=== PATIENT | male | born 1950 | race Caucasian/White ===

== ENCOUNTER 2022-01-08 10:35 | Day surgery (SDC) | payer MEDICARE, MEDICAID, SELFPAY ==
[2022-01-08] VITALS (8 sets, daily range): BP systolic 114–168; BP diastolic 66–80; PULSE 59–68; RESP 16; TEMP 36.2–36.7; O2SAT 96–100; BMI 28.5
[2022-01-08] MEDS: Lactated Ringers 1,000 ML 15 ML IV (11:36)
--- NOTE | 2022-01-08 12:35 | PCM.HP.BLA ---
History and Physical Date of Admission: 01/08/22 HISTORY AND PHYSICAL ? Phoenix Rivera 1950 ? ? REFERRING PHYSICIAN: Jessica Tapia MD ? CHIEF COMPLAINT: New Patient ? HPI: The patient is a 71 year old male with a diagnosis of Vascular catheter fitting or adjustment (primary encounter diagnosis). Phoenix is currently scheduled to undergo chemotherapy and needs vascular access for treatment. The patient denies a prior history of central venous access. ? The patient is right hand dominant. ? The patient is being seen by me today at the request of Dr. Tapia for my opinion and advice regarding Vascular catheter fitting or adjustment (primary encounter diagnosis). ? ? PAST MEDICAL HISTORY PAST MEDICAL HISTORY Diagnosis Date ? CAD (coronary artery disease) 11/03/2021 ? COPD (chronic obstructive pulmonary disease) (HCC) 11/03/2021 ? GERD (gastroesophageal reflux disease) 11/03/2021 ? History of CVA (cerebrovascular accident) 11/03/2021 ? HTN (hypertension) 11/03/2021 ? RY (obstructive sleep apnea) 11/03/2021 ? Type 2 diabetes mellitus (HCC) 11/03/2021 ? ? PAST SURGICAL HISTORY PAST SURGICAL HISTORY Procedure Laterality Date ? APPENDECTOMY ? ? ? CHOLECYSTECTOMY HX ? ? ? PAST SURGICAL HISTORY OF ? ? ? lithotripsy ? PAST SURGICAL HISTORY OF ? ? ? cervical fusion ? PAST SURGICAL HISTORY OF ? ? ? cardiac stents ? PAST SURGICAL HISTORY OF ? ? ? left shoulder surgery x 2 ? PAST SURGICAL HISTORY OF ? ? ? multiple colonoscopies ? PAST SURGICAL HISTORY OF ? ? ? right colectomy ? PAST SURGICAL HISTORY OF ? ? ? left knee surgery x 2 ? PAST SURGICAL HISTORY OF ? ? ? hernia repair x 2 ? PAST SURGICAL HISTORY OF ? ? ? left hand finger surgery ? PAST SURGICAL HISTORY OF ? 11/07/2021 ? Transurethral resection of bladder tumor, large >5 cm ? ? ? CURRENT MEDICATIONS Current Outpatient Medications Medication Sig Dispense Refill ? traMADol (ULTRAM) 50 mg tablet Take 50 mg by mouth every 6 hours as needed for pain. ? ? ? insulin glargine,hum.rec.anlog (BASAGLAR KWIKPEN U-100 INSULIN SUBCUTANEOUS) Inject 25 Units subcutaneously once daily. ? ? ? prochlorperazine (COMPAZINE) 10 mg tablet Take 1 tablet by mouth every 6 hours as needed. 30 tablet 2 ? lidocaine-prilocaine (EMLA) 2.5-2.5 % cream Apply 1 application to affected area as needed. 30 g 2 ? umeclidinium-vilanterol (ANORO ELLIPTA) 62.5-25 mcg/actuation inhaler Inhale 1 Puff as instructed once daily. ? ? ? amLODIPine (NORVASC) 10 mg tablet TAKE 1/2 TABLET(5 MG) BY MOUTH DAILY ? ? ? ascorbic acid, vitamin C, (VITAMIN C) 250 mg tablet Take 250 mg by mouth once daily. ? atorvastatin (LIPITOR) 40 mg tablet TAKE 1 TABLET(40 MG) BY MOUTH AT BEDTIME ? ? ? carvedilol (COREG) 12.5 mg tablet Take 12.5 mg by mouth once daily. ? cholecalciferol, Vitamin D3, (VITAMIN D3) 1,250 mcg (50,000 unit) cap capsule Take 50,000 Units by mouth one time a week. ? famotidine (PEPCID) 40 mg tablet Take 40 mg by mouth twice daily. ? furosemide (LASIX) 20 mg tablet Take 20 mg by mouth once daily. ? linaclotide (LINZESS) 145 mcg capsule Take 145 mcg by mouth once daily. ? losartan (COZAAR) 100 mg tablet Take 100 mg by mouth once daily. ? metFORMIN ER (GLUCOPHAGE XR) 500 mg 24 hr tablet Take 1,000 mg by mouth twice daily. ? montelukast (SINGULAIR) 10 mg tablet Take 10 mg by mouth daily at bedtime. ? omeprazole (PRILOSEC) 20 mg capsule Take 20 mg by mouth once daily. ? potassium chloride ER (K-DUR, KLOR-CON) 20 mEq tablet Take 20 mEq by mouth twice daily. ? senna-docusate (SENNA-S) 8.6-50 mg per tablet as needed. ? ? ? insulin aspart U-100 (NOVOLOG FLEXPEN U-100 INSULIN) 100 unit/mL (3 mL) Sliding scale ? blood sugar diagnostic (CONTOUR NEXT TEST STRIPS) test strip TEST BLOOD SUGAR 5 TIMES DAILY ? ? ? cephALEXin (KEFLEX) 500 mg capsule Take 500 mg by mouth four times daily. (Patient not taking: Reported on 11/28/2021 ) ? ? ? insulin glargine in syringe 1 mL (LANTUS SOLOSTAR, BASAGLAR TENZIN) Inject 25 Units subcutaneously one time only. (Patient not taking: Reported on 11/28/2021 ) ? ? ? METHENAMINE HIPPURATE ORAL Take 1 tablet by mouth twice daily. (Patient not taking: Reported on 11/28/2021 ) ? ? ? aspirin 81 mg chewable tablet Take 81 mg by mouth. (Patient not taking: Reported on 11/28/2021 ) ? ? ? clopidogrel (PLAVIX) 75 mg tablet Take 75 mg by mouth. ? ? ? terazosin HCl (TERAZOSIN ORAL) Take by mouth. (Patient not taking: Reported on 11/28/2021 ) ? ? ? icosapent ethyl (VASCEPA) 1 gram capsule TK 2 CS PO BID (Patient not taking: Reported on 11/28/2021) ? ? ? No current facility-administered medications for this visit. ? ? ALLERGIES: Codeine ? PERSONAL HISTORY: SOCIAL HISTORY Social History ? Tobacco Use ? Smoking status: Former Smoker ? ? Packs/day: 1.00 ? ? Years: 30.00 ? ? Pack years: 30.00 ? ? Types: Cigarettes ? ? Quit date: 1999 ? ? Years since quittin.1 ? Smokeless tobacco: Never Used Substance Use Topics ? Alcohol use: Not Currently ? Drug use: Never ? FAMILY HISTORY: FAMILY HISTORY FAMILY HISTORY Problem Relation Age of Onset ? Brain Cancer Mother ? ? Heart Father ? ? Anesthesia Problems No Family History ? ? ? REVIEW OF SYMPTOMS: The review of systems data was entered by the nurse and reviewed by me ? There are no exam notes on file for this visit. ? PHYSICAL EXAMINATION: ? General: The patient is 71 year old male, well nourished, well hydrated in no acute distress. The patient is oriented to time, place, and person. ? VITALS: Blood pressure 152/84, pulse 66, temperature 37.2 ?C (98.9 ?F), height 188 cm (6' 2), weight 99.8 kg (220 lb), SpO2 97 %. Body mass index is 28.25 kg/m?. ? HEENT: Normal cephalic, ataumatic, pupils are equally round, sclera are anicteric, mucous membranes are moist, oropharynx is clear. Neck has no masses, asymmetry or lymphadenopathy. Thyroid is unremarkable. ? Respiratory: Clear to auscultation and percussion. Normal respiratory excursion and pattern. ? Cardiac: Examination is regular rate and rhythm. ? Abdominal exam: Soft, nontender, with no palpable masses. No hepatosplenomegaly. No palpable hernias. ? Rectal exam: exam deferred ? Extremities: no clubbing, cyanosis or edema. No adenopathy. ? Other: ? ? LABORATORY VALUES: As Noted ? RADIOLOGIC STUDIES: As Noted ? Assessment IMPRESSION: Vascular catheter fitting or adjustment (primary encounter diagnosis), need for IV access ? PLAN: I plan to perform a right port a cath placement. The planned surgical procedure was discussed extensively with the patient. The risks, benefits, anticipated outcomes and possible complications were mentioned. My staff has also explained the procedure in understandable terms and the patient was given the option to take printed material concerning the planned procedure. The patient had the opportunity to ask questions concerning the planned procedure. The patient freely consents to the planned procedure. ? Planned [facility] [id number] ? Patien t Weight Last 1 Encounter Wt Readings: Date: Wt: 11/28/2021 99.8 kg (220 lb) ? Antibiotic: Ancef 2gm IVPB command and control specialist to OR ? Planned Anesthetic: MAC with local ? I will not plan to access the port at the time of surgery. ? Diagnoses: (Z45.2) Vascular catheter fitting or adjustment (primary encounter diagnosis) ? ? ? The patient is being seen by me today at the request of Dr. Tapia for my opinion and advice regarding Vascular catheter fitting or adjustment (primary encounter diagnosis). ? COVID (Procedure Consent) Procedure Criteria ? Procedure Criteria: Yes Elective The surgeon/proceduralist and patient have discussed in detail the risk of exposure to and/or potential harm posed by the COVID-19 virus with having a surgery/procedure at this time versus the risk of? delaying the surgery/procedure. It is not possible to know either the risk of delaying the surgery or procedure or chance of getting an infection with perfect accuracy, but a joint decision was made between the patient and the surgeon/proceduralist ?to proceed at this time with the scheduled surgery/procedure as indicated on the consent form. ? Jakob Nguyen III, MD I have re-examined the patient. There are no clinical changes since date of exam.
[2022-01-08] MEDS: Cefazolin 2 GM in 0.9% Normal Saline 100 ML IV (13:04)
[2022-01-08] MEDS: Bupivacaine Mpf 0.5% 30 ML VIAL (13:35)
--- NOTE | 2022-01-08 14:13 | RAD_ITS ---
STUDY: X-RAY CHEST REASON FOR EXAM: Male, 71 years old. Line placement TECHNIQUE: Single AP portable view of the chest. COMPARISON: None. FINDINGS: Right subclavian central venous port has been placed, tip is in the distal SVC. The lungs are clear and expanded. There is no demonstrated pleural abnormality. Normal size heart. Normal mediastinum and jonh. Normal visualized pulmonary arteries. Normal visualized aortic arch and descending thoracic aorta. Normal visualized thoracic spine. There is degenerative osteoarthritis of the bilateral shoulders. There is no demonstrated abnormality of the visualized soft tissue structures of the upper abdomen. RAD/CXR for Line Placement IMPRESSION: No acute pulmonary process Electronically Signed: Leno Sumner MD at 14:57 EDT ,
--- NOTE | 2022-01-08 14:14 | PCM.OPRPT ---
Problems Associated Problem List Diagnoses (1) Vascular catheter fitting or adjustment: Report of Operation Date of Procedure: 01/08/22 Pre-Operative Diagnosis: Vascular fitting and adjustment Post-Operative Diagnosis: Same Surgery/Procedure Performed:: Placement of a right internal jugular Port-A-Cath Surgeon: [place] patient services coordinator: None Type of Anesthesia: Local MAC Anesthesiologist: Rex Solis Estimated Blood Loss (mL): < 5 cc Description of Procedure: Patient was brought into the operating room. Placed in the supine position. Placed then in the headdown position I ultrasound the neck to identify the internal jugular vein. I marked the neck and chest appropriately. The neck and chest were then sterilely prepped and draped in the usual fashion. Local was injected into the neck. Seldinger's technique was used to gain access to the right internal jugular vein. Guidewire was placed over the needle the needle was removed fluoroscopy was used to confirm proper placement of the guidewire. The bed was then placed back into the neutral position. I injected local in the chest. Incision was made. Electrocautery was used to create a pocket for the port. I went back up into the neck. Skin anamaria was made dilator and sheath were placed over the guidewire removing the guidewire and dilator. Single lumen catheter was placed through the sheath that sheath was removed. Fluoroscopy was used to confirm proper length. I tunneled from the pocket created over the collarbone into the neck and brought the catheter down. I cut the catheter to length placed a locking hub on the catheter and the port onto the catheter and secured the tube with a locking hub. It flushed and irrigated well and was flushed with 3 cc of hep flush. The port was sutured into the pocket with 2 sutures of 2-0 Prolene. Skin was brought together with deep dermal stitches of 3-0 Vicryl. Dermabond was applied sterile dressings were applied and the patient tolerated the procedure well. Admit VTE Documentation VTE Present on Admission: No VTE Mechan Device Prophylaxis: SCD's VTE Pharm Prophylaxis ordered?: No Reason prophylaxis not ordered:: Treatment Not Indicated
--- NOTE | 2022-01-08 14:18 | DCINST_ITS ---
Discharge Instructions Procedure Port-A-Cath Diet Discharge Diet: No restrictions (Pain medication may cause nausea. You should typically eat light foods as you take your pain medication.) Activity Discharge Activity: May Shower (with the bandage in place 1-2 days after surgery. DO NOT SHOWER WHEN YOUR PORT IS ACCESSED.) Additional Activity Instructions:: May not drive, work with heavy equipment, or sign legal documents for [address]. [address] if you are no longer taking narcotic pain medications. You may drive when you are no longer taking pain medications. Dressing / Incision Additional Dressing/Incision Instructions:: Leave the bandage on for 2-3 days. When you remove the bandage, leave the steri-strips intact until they fall off. Follow Up Care Please Follow Up With: Sury Raymond PA-C When: Call office to schedule an appointment to be seen in 7 days. Test Results: Test results from this visit will be discussed in further detail at your follow-up appointment, if applicable. Discharge Plan Admission Attending Provider: Jakob Nguyen Primary Care Provider: Care PhysicianLiv Primary Discharge Orders/Prescriptions Prescriptions: New oxycodone-acetaminophen [Endocet] 5-325 mg tablet 1 tab PO Q4H PRN (Reason: pain) 5 Days Qty: 20 RF: 0 No Action atorvastatin 40 mg Tablet 40 mg PO QHS RF: 0 carvedilol 12.5 mg Tablet 12.5 mg PO DAILY RF: 0 hydrocodone-acetaminophen [[place]] 5-325 mg Tablet 1 tab PO Q4H PRN (Reason: Pain) RF: 0 amlodipine 2.5 mg Tablet 2.5 mg PO DAILY RF: 0 sulfamethoxazole-trimethoprim [Bactrim DS] 800-160 mg Tablet 1 tab PO DAILY RF: 0 tramadol 50 mg Tablet 50 mg PO Q6H PRN (Reason: Pain) RF: 0 ascorbic acid (vitamin C) 250 mg Tablet 250 mg PO BID RF: 0 promethazine 25 mg Tablet 25 mg PO Q6H PRN (Reason: Pain) RF: 0 omeprazole 20 mg Capsule,Delayed Release(Dr/Ec) 20 mg PO BID RF: 0 montelukast [Singulair] 10 mg Tablet 10 mg PO QHS RF: 0 furosemide 20 mg Tablet 20 mg PO DAILY RF: 0 oxybutynin chloride 5 mg Tablet 5 mg PO BID RF: 0 losartan 100 mg Tablet 100 mg PO DAILY RF: 0 metformin 500 mg Tablet Extended Release 24 Hr 1,000 mg PO BID RF: 0 insulin aspart U-100 [Novolog Flexpen U-100 Insulin] 100 unit/mL (3 mL) Insulin Pen 10 unit SUBCUT TID RF: 0 Lantus U-100 Insulin 100 unit/mL Cartridge 25 unit SUBCUT DAILY RF: 0 Symlin 600 mcg/mL Solution 120 mcg SUBCUT TID RF: 0 cholecalciferol (vitamin D3) [Vitamin D3] 125 mcg (5,000 unit) Tablet 50,000 mcg PO WE RF: 0 Linzess 145 mcg Capsule 145 mcg PO DAILY RF: 0 umeclidinium 62.5 mcg/actuation Blister With Device 1 inh INHALATION DAILY RF: 0 Referrals / Follow Up: Care Physician,No Primary [Primary Care Provider] - Disposition Discharge Orders: Discharge Patient (Routine); Ordered 01/08/22 Ordered By: Dr. Jakob Nguyen
[2022-01-08 14:26] LABS: Bedside Glucose 125 mg/dL (74-106)
== END 2022-01-08 23:59 | disposition home or self-care (01) ==
LOC: SDC 10:39 → AC 10:48
PROVIDERS: Referring Provider Surgery; Visit Provider Surgery
PROC: (CPT 36561; principal; 2022-01-08 12:45)
DX: Z45.2 Encounter for adjustment and management of vascular access device (principal); J44.9 Chronic obstructive pulmonary disease, unspecified; C80.1 Malignant (primary) neoplasm, unspecified; E11.9 Type 2 diabetes mellitus without complications; Z87.891 Personal history of nicotine dependence; I10 Essential (primary) hypertension; K21.9 Gastro-esophageal reflux disease without esophagitis; I25.10 Atherosclerotic heart disease of native coronary artery without angina pectoris; G47.33 Obstructive sleep apnea (adult) (pediatric)
CPT/HCPCS: 36561; 00532; 71045; 77001; 82962; J7120; C1788; J2405

== ENCOUNTER → 2022-03-12 | Outpatient (CLI) | payer MEDICARE, MEDICAID, SELFPAY ==
--- NOTE | 2022-03-12 13:29 | VDLE_ITS ---
Reason For Study: Swelling RIGHT CFV is compressible, spontaneous, phasic, competent and demonstrates normal augmentation. FV is compressible, spontaneous, phasic, competent and demonstrates normal augmentation. POP V is compressible, spontaneous, phasic, competent and demonstrates normal augmentation. T/P Trunk is compressible. PTV is compressible. RT PerV is compressible. GSV is absent. Procedure This is a venous duplex using B-mode, color flow and spectral Doppler. Exam performed in department. A preliminary report was called and/or faxed to [facility]. VL/Venous Duplex US, Unilateral Interpretation Summary There is no evidence of right lower extremity deep vein thrombosis. Surgically absent right great saphenous vein Ordering Physician: Jessica Tapia Performed By: Lucinda Meyers RVT
== END | disposition home or self-care (01) ==
LOC: CVS 13:03
PROVIDERS: Visit Provider Internal Medicine Hematology & Oncology
DX: C79.51 Secondary malignant neoplasm of bone (principal); C67.8 Malignant neoplasm of overlapping sites of bladder; M79.89 Other specified soft tissue disorders
CPT/HCPCS: 93971